=== PATIENT | male | born 1955 | race Caucasian/White ===

== ENCOUNTER 2019-11-25 01:14 | Emergency (ER) | payer MEDICARE, MEDICAID, SELFPAY ==
--- NOTE | 2019-11-25 01:27 | PC.NURSE ---
Addendum entered by Elias Villarreal RN 11/25/19 01:48: explained to erp, can not keep pt here if pt is refusing all care and refusing treatment. erp continues to want pt kept here for observation. Original Note: pt arrives with ems, pt refuses to wear mask. pt refuses to give any information, refuses to allow blood, urine. refuses vital signs. repeated attempts to obtain information. unable to complete assessment. pt received 4mg narcan from ems. apparently was found unresponsive by roommates who called ems. pt cursing and flipping middle finger to this commercial insurance underwriter and ems staff. when repeated questions for assessment from this commercial insurance underwriter pt stated F___ Off. ERP in room with pt , pt continued to refused information. pt coughing and continues to refuse to wear mask. Police called to remove pt. Erp wants pt kept here to observe. no information regarding pt health history obtained. pt had bag of medications with him which was entered into the computer. pt verbally abusive to this commercial insurance underwriter. door to room [id number] with curtains open to observe pt.
--- NOTE | 2019-11-25 01:40 | PC.NURSE ---
pt continues to refuse information. asked pt if he would stop breathing or heart would stop beating if he wanted cpr or intubation, pt states NO, shaking his head.
--- NOTE | 2019-11-25 01:44 | PC.NURSE ---
pt requesting a cup of water, given to pt per erp.
--- NOTE | 2019-11-25 01:49 | ED.AMS ---
HPI - Altered Mental Status General Chief Complaint: Overdose Stated Complaint: overdose Source: patient Mode of arrival: ambulatory Limitations: no limitations History of Present Illness HPI narrative: Patient apparently found unresponsive by roommate. EMS report responsive only to sternal rub. . Pt. became responsive after being given 4 mg of Narcan. Brought to E.D. Pt. unknown to this hospital.?Pt. is uncooperative, yells loudly I can't hear you Answers some questions; states you sound like you have a fist in you mouth. When asked where are you he responds? I'm in [place] .? Asked about SOB or chest pain responds all the time, I have COPD .?Refuses to be examined. Refuses to answer questions. ?Pt refused to wear a face mask. Pt. verbally abusive to nurse and ambulance personnel, referring to the latter as an a..hole. Related Data Home Medications Medication Instructions Recorded Confirmed bethanechol chloride 10 mg PO TID 11/25/19 11/25/19 fluoxetine 40 mg PO DAILY 11/25/19 11/25/19 fluticasone furoate-vilanterol 2 inh INHALATION DIRECTED 11/25/19 11/25/19 [Breo Ellipta] furosemide 20 mg PO DAILY 11/25/19 11/25/19 levothyroxine 50 mcg PO DAILY 11/25/19 11/25/19 potassium chloride 20 meq PO DAILY 11/25/19 11/25/19 quetiapine 100 mg PO DAILY 11/25/19 11/25/19 Allergies Allergy/AdvReac Type Severity Reaction Status Date / Time ketorolac Allergy Unknown UNKNOWN Verified 03/17/17 15:54 [id number] Allergy Unknown deathly ill Verified 03/17/17 15:12 Review of Systems Review of Systems: Narrative: patient refused to answer questions. Exam Narrative: Exam Narrative: Pt alert, NAD. Uncooperative. Refuses to be examined. Appears angry. Const: General: alert Psych: Appearance: grossly normal Mental Status: mental status grossly normal Thought content: Yes Normal thought content present Course Course Emergency Course: Police were called to remove pt. from E.D. because of inappropriate language and refusal to be evaluated. Pt. asked that a cab be called. A cab was called; pt was then more cooperative. He had been on methadone for 40 years, last prescription in June. Has been depressed about the recent of his father, his best friend. Denied feeling suicidal. Pt. did not address event tonight. He states he has a chronic cough with chronic thick daily sputum production. This has recently gotten worse. He denies fever. He has been using a Symbicort inhaler but would prefer to have a Trelegy inhaler which works much better. He has been out of a long term for a month or two; he's very frustrated with lack of doctor interaction while in the [place] He is almost out of his meds, has no refill and no primary care doctor. He recently moved to this area. He is staying at a house which is well known to the paramedics for opiate overdoses. On physical exam his respirations are not labored. Breath sounds are decreased throughout; no wheezes or rales. Vital Signs Vital signs: Vital Signs Temperature 36.6 C 11/25/19 02:09 Pulse Rate 85 11/25/19 02:09 Respiratory Rate 20 11/25/19 02:09 Blood Pressure 90/56 L 11/25/19 02:09 Pulse Oximetry 97 11/25/19 02:09 Temperature 37.1 C 11/25/19 02:32 Pulse Rate 78 11/25/19 02:32 Respiratory Rate 20 11/25/19 02:32 Blood Pressure 107/51 L 11/25/19 02:32 Pulse Oximetry 97 11/25/19 02:32 MDM - Altered Mental Status MDM Narrative Medical decision making narrative: Pt. appeared to have been initially angry about being resuscitated by EMS and ending up in the E.D. At the latter portion of his visit, before his cab arrived, he was apologetic about his behavior and cooperative with the nurse in providing registration information and his medical info, and cooperative with me. He did not directly address his episode of unresponsiveness, I suspect because of shame. The fact he responded to Narcan 4 mg and has a 40 yr. hx of being on me
--- NOTE | 2019-11-25 02:07 | PC.NURSE ---
pt called nurse to room, i just want to get out of here, what is your suggestion? explained taxi can be called. pt apologized for behavior upon arriving to er. assessment questions completed at this time.
[2019-11-25 02:09] VITALS: BP 90/56; PULSE 85; RESP 20; TEMP 36.6; O2SAT 97
[2019-11-25 02:32] VITALS: BP 107/51; PULSE 78; RESP 20; TEMP 37.1; O2SAT 97
--- NOTE | 2019-11-25 02:46 | PC.NURSE ---
pt ambulated to wheelchair without difficulty noted. cooperative and answering questions and speaking cordially to this typewriters functional tester.
--- NOTE | 2019-11-25 02:53 | PC.NURSE ---
pt assisted to taxi cab per wheelchair.
== END 2019-11-25 02:53 | disposition home or self-care (01) ==
LOC: CHSED 01:18
PROVIDERS: Emergency Provider Family Medicine
DX: T40.604A Poisoning by unspecified narcotics, undetermined, initial encounter (principal)
CPT/HCPCS: 99282; 99283